=== PATIENT | male | born 1965 | race Caucasian/White ===

== ENCOUNTER 2016-10-30 10:16 | Emergency (ER) | payer OTHER ==
[2016-10-30 10:32] VITALS: RESP 16; O2SAT 94
[2016-10-30] MEDS ORDERED: TDAP ADULT 0.5 ML INJ (BOOSTRIX) IM ONE (10:35)
--- NOTE | 2016-10-30 10:53 | EDPHY ---
HPI/HX/ROS/PE/MDM Narrative: CHIEF COMPLAINT: Thumb laceration HPI: The patient is a 51-year-old male with a history of prediabetes. Just prior to arrival, while at work, the patient accidentally cut his left thumb with a knife while cutting sandwiches. The patient complains of mild bleeding, controlled with pressure. His last tetanus shot is unknown. He denies other injury. REVIEW OF SYSTEMS: Aside from elements discussed in the HPI, a comprehensive 10-point review of systems was reviewed and is negative. PMH: Pre diabetes. SOCIAL HISTORY: Works at a local private [employer]. PHYSICAL EXAM: General:Patient is alert, in no acute distress. Extremities: Left thumb. A 1.5 cm laceration is present on the ulnar aspect of the left thumb, just proximal to the nail. This does not involve the joint. The patient has intact light touch sensation and motor function throughout the finger. Remainder of hand is unaffected. Neuro: Oriented x3. Normal motor function. Normal sensory function. ED Course: Procedure: Laceration repair. Verbal consent was obtained from the patient. The 1.5 cm laceration on the left thumb was anesthetized in the usual fashion. The wound was irrigated, draped and explored to its base. No foreign material was identified. There were no deep structures involved. No tendon injury was identified. The wound was repaired with 4 sutures of 5-0 prolene. Good approximation was obtained. The procedure was performed by myself. MDM: Uncomplicated thumb laceration without evidence of neurovascular or tendon injury. General Time Seen by Provider: 10/30/16 10:19 Initial Vital Signs: Initial Vital Signs Temperature (C) 37.3 C 10/30/16 10:26 Heart Rate 83 10/30/16 10:26 Respiratory Rate 16 10/30/16 10:26 Blood Pressure 152/84 H 10/30/16 10:26 O2 Sat (%) 94 10/30/16 10:26 O2 Delivery Mode Room Air Allergies/Adverse Reactions: No Known Allergies Allergy (Unverified 10/30/16 10:33) Home Medications: Medication Instructions Recorded Celexa 10/30/16 Lamictal 10/30/16 Lisinopril-Hctz 10-12.5 mg Tab 10/30/16 Metformin HCl 10/30/16 Neurontin 10/30/16 Departure - Departure Disposition: Home, Routine, Self-Care Clinical Impression: Thumb laceration Qualifiers: Encounter type: initial encounter Laterality: left Qualified Code(s): S61.012A - Laceration without foreign body of left thumb without damage to nail, initial encounter Condition: Good Instructions: Finger Laceration (ED) Additional Instructions: Sutures out in 10-14 days. Return to the Emergency Department for fever, redness, discharge from wound, increasing pain or other worsening of condition.
[2016-10-30 11:01] VITALS: BP 122/77; PULSE 82; TEMP 98.8
== END 2016-10-30 10:59 | disposition home or self-care (01) ==
LOC: CED 10:16
PROC: 0HQGXZZ Repair Left Hand Skin, External Approach (ICD-10-PCS; principal; 2016-10-30)
PROC: 3E0234Z Introduction of Serum, Toxoid and Vaccine into Muscle, Percutaneous Approach (ICD-10-PCS; principal; 2016-10-30)
DX: S61.012A Laceration without foreign body of left thumb without damage to nail, initial encounter (principal); W26.0XXA Contact with knife, initial encounter; Y92.89 Other specified places as the place of occurrence of the external cause; Y99.0 Civilian activity done for income or pay; Y93.89 Activity, other specified

== ENCOUNTER 2016-11-02 12:00 | Emergency (ER) | payer OTHER ==
[2016-11-02 12:54] VITALS: RESP 18; TEMP 98.1
--- NOTE | 2016-11-02 14:21 | EDPHY ---
H & P Time Seen by Provider: 11/02/16 12:27 HPI/ROS: This patient had wound dehiscence from left thumb lacerations that was sutured at [facility] emergency department 3 days prior to arrival. Patient explains that he lifted an item yesterday that caught when the sutures in the pulled the flap of skin and sutures popped out. He reports minimal discomfort at the site and mild bleeding. Dehiscence occurred last night. Patient does manual work and requests repeat closure of the wound that he continue using his left thumb. ROS: No numbness or tingling. No difficulty moving the thumb. 5 point ROS is otherwise negative Past Medical/Surgical History: Otherwise healthy. Immunizations up today Smoking Status: Current every day smoker Physical Exam: Physical Exam Vital signs are normal. General: No acute distress HEENT: Atraumatic. Eyes: Pupils equal and react to light. Extraocular motions are intact. Lungs: No respiratory distress. Cardiac: Brisk capillary refill is intact throughout. Skin: No rash or pallor. 1.5 cm full-thickness laceration to the ulnar aspect of the left thumb just proximal to the nail bed. Minimal bleeding. Subcutaneous tissues evident. No foreign bodies are evident. Neuro: Alert with no sensorimotor deficits in the affected extremity. Constitutional: Initial Vital Signs Temperature (C) 36.7 C 11/02/16 12:05 Heart Rate 89 11/02/16 12:05 Respiratory Rate 18 11/02/16 12:05 Blood Pressure 144/92 H 11/02/16 12:05 O2 Sat (%) 95 11/02/16 12:05 O2 Delivery Mode Room Air Allergies/Adverse Reactions: No Known Allergies Allergy (Unverified 11/02/16 12:12) Home Medications: Medication Instructions Recorded Celexa 10/30/16 Lamictal 10/30/16 Lisinopril-Hctz 10-12.5 mg Tab 10/30/16 Metformin HCl 10/30/16 Neurontin 10/30/16 MDM/Departure - MDM Procedures: Digital block: After verbal consent, using a 50 50 mix of 0.5% Marcaine 2% plain lidocaine, 27 gauge needle, chlorhexidine scrub under sterile conditions- 3 injections were administered to the base of the affected finger, 8 mL with good effect. Patient tolerated this well. There were no complications. The wound is 1.5 cm full-thickness. The wound was copiously irrigated with saline. The wound was explored for foreign bodies and none were found. The wound was prepped and draped in the normal sterile fashion. The edges were reapproximated using 5 running sutures, 2 interrupted sutures using 5 0 Ethilon none P3 needle with good hemostasis and cosmesis. The patient tolerated the procedure well. There were no complications ED Course/Re-evaluation: We discussed wound care options in this patient requests repeat sutures understanding the risk of infection given delayed closure. We greeted be more functional to suture this again then to try to use Steri-Strips or other given his frequent use of his hands. - Depart Disposition: Home, Routine, Self-Care Clinical Impression: Wound dehiscence Condition: Good Instructions: Care For Your Stitches (ED) Additional Instructions: Diagnosis: Wound dehiscence of thumb [id number] Plan: Keep the wound clean and dry for the next 2 days. Then clean daily with warm soapy water daily. Limited use the thumb as tolerated work. Return for suture removal in 10-12 days Ibuprofen Tylenol for discomfort if needed. Stand Alone Forms: Work Limited Duty, Work Excuse Referrals: [facility] [Other] - As per Instructions
[2016-11-02 14:26] VITALS: BP 157/62; PULSE 78; O2SAT 97
== END 2016-11-02 14:25 | disposition home or self-care (01) ==
LOC: CED 12:00
PROC: 0HQGXZZ Repair Left Hand Skin, External Approach (ICD-10-PCS; principal; 2016-11-02)
DX: T81.33XA Disruption of traumatic injury wound repair, initial encounter (principal); F17.200 Nicotine dependence, unspecified, uncomplicated; Y82.8 Other medical devices associated with adverse incidents